=== PATIENT | female | born 1990 | race Hispanic/Latino ===

== ENCOUNTER 2018-06-21 10:23 | Emergency (ER) | payer OTHER ==
[2018-06-21 11:02] VITALS: BP 98/68; PULSE 78; RESP 18; TEMP 98.4; O2SAT 99
[2018-06-21] MEDS ORDERED: Tdap Vaccine 0.5 ml Vial (10-64 yrs) IM ONE ×2 (11:20→11:41)
[2018-06-21] MEDS ORDERED: Lidocaine 1% Inj (20ml) ONE (11:42)
[2018-06-21] MEDS ORDERED: Lidocaine 1% Inj (20ml) INFIL ONE (11:45)
--- NOTE | 2018-06-21 12:00 | RAD ---
Date of service: 06/21/2018 PROCEDURE: Radiographs of the left elbow. HISTORY: laceration COMPARISON: No prior. FINDINGS: BONES: Normal. No fracture. JOINTS: Normal. No osteoarthritis. SOFT TISSUES: Normal. JOINT EFFUSION: None. OTHER FINDINGS: None IMPRESSION: Unremarkable radiographs of the left elbow.
--- NOTE | 2018-06-21 12:29 | ED PDOC ---
Upper Extremity Pain/Injury Time Seen by Provider: 06/21/18 11:10 Chief Complaint (Nursing): Abnormal Skin Integrity History Per: Patient Additional Complaint(s): Pt. states earlier today a wine glass accidentally broke over her L elbow sustaining a laceration. Denies numbness, tingling, FB sensation. Past Medical History Reviewed: Historical Data, Nursing Documentation, Vital Signs Vital Signs: Last Vital Signs Temp 98.4 F 06/21/18 11:00 Pulse 78 06/21/18 11:00 Resp 18 06/21/18 11:00 BP 98/68 L 06/21/18 11:00 Pulse Ox 99 06/21/18 11:00 - Family History Family History: States: No Known Family Hx - Allergies Allergies/Adverse Reactions: Allergies Allergy/AdvReac Type Severity Reaction Status Date / Time Penicillins Allergy RASH Verified 06/21/18 11:00 Review of Systems ROS Statement: Except As Marked, All Systems Reviewed And Found Negative Physical Exam - Physical Exam Appears: Positive for: Well, Non-toxic, No Acute Distress Skin: Positive for: Normal Color, Warm. Negative for: Rash Pulses-Radial (L): 2+ Pulses-Radial (R): 2+ Extremity: Positive for: Normal ROM (FROM actively of L elbow), Other (L posterior elbow with 1.5cm superficial linear laceration without deep structure involvement or active bleeding) Neurologic/Psych: Positive for: Alert, Oriented (x3). Negative for: Aphasia, Facial Droop - ECG O2 Sat by Pulse Oximetry: 99 Procedures - Time-Out Type of Procedure: laceration repair Site of Procedure: L elbow Correct Patient: Yes Correct Procedure: Yes Correct Site Marked: Yes X-Ray Marked: Yes PA/Tech: Guido SIMON - Laceration/Wound Repair Laceration repair Wound Length (cm): 1.5 Wound's Depth, Shape: superficial, linear Wound Explored: clean Irrigated w/ Saline (ccs): 250 Betadine Prep?: Yes Anesthesia: 1% Lidocaine Volume Anesthetic (ccs): 3 Wound Repaired With: Sutures Suture Size/Type: 4:0, proline Number of Sutures: 3 (middle suture - vertical mattress) Wound Complexity: Intermediate Sterile Dressing Applied?: Yes Sling Applied?: Yes (with frandy wrap) Disposition - Clinical Impression Clinical Impression: Elbow laceration - Patient ED Disposition Is Patient to be Admitted: No - Disposition Referrals: [facility] [Outside] Disposition: Routine/Home Disposition Time: 12:28 Condition: STABLE Additional Instructions: SUTURE REMOVAL IN 10-14 DAYS DARIEL MARQUEZ, thank you for letting us take care of you today. Your provider was Drew Finley III, DO and you were treated for LT ARM LACERATION. The emergency medical care you received today was directed at your acute symptoms. If you were prescribed any medication, please fill it and take as directed. It may take several days for your symptoms to resolve. Return to the Emergency Department if your symptoms worsen, do not improve, or if you have any other problems. Please contact your doctor or call one of the physicians/clinics you have been referred to that are listed on the Patient Visit Information form that is included in your discharge packet. Bring any paperwork you were given at discharge with you along with any medications you are taking to your follow up visit. Our treatment cannot replace ongoing medical care by a primary care provider outside of the emergency department. Thank you for allowing the [facility] team to be part of your care today. If you had an X-Ray or CT scan: A Radiologist will review the ED reading if any change in treatment is needed we will contact you. If you had a blood, urine, or wound culture: It will take several days for the results, if any change in treatment is needed we will contact you. If you had an STI test: It will take 48 hours for the results. Please call after 1 week if you have not heard back. Instructions: Laceration Repair With Stitches (DC) Forms: [facility] (Korean) Print Language: GERMAN
== END 2018-06-21 14:36 | disposition home or self-care (01) ==
LOC: H.ER 10:23
DX: S51.012A Laceration without foreign body of left elbow, initial encounter (principal); W25.XXXA Contact with sharp glass, initial encounter; Y92.89 Other specified places as the place of occurrence of the external cause; Z88.0 Allergy status to penicillin